=== PATIENT | female | born 1995 ===

== ENCOUNTER 2017-07-25 13:47 | Emergency (ER) | payer MEDICAID ==
[2017-07-25 13:59] VITALS: BP 109/70; PULSE 78; RESP 20; TEMP 97.9; O2SAT 100
--- NOTE | 2017-07-25 14:37 | C.PDOC ---
History Of Present Illness 21 year old female presents to the ED for evaluation of generalized itchiness. Patient is also complaining of diffuse rashes in different spots of her body that have been intermittent for two days and pain to her elbow and knees. Patient states she started taking Wellbutrin XL 3 weeks ago. Patient told her PMD about her symptoms and was advised to still continue the medication. Patient denies fever, chills, mouth/throat swelling, shortness of breath. Time Seen by Provider: 07/25/17 14:03 Chief Complaint (Nursing): Abnormal Skin Integrity History Per: Patient History/Exam Limitations: no limitations Onset/Duration Of Symptoms: Intermittent Episodes (two days ) Current Symptoms Are (Timing): Still Present Location Of Injury: Right: Elbow, Knee, Left: Elbow, Knee Quality Of Symptoms: Painful, Itching Additional History Per: Patient Past Medical History Reviewed: Historical Data, Nursing Documentation, Vital Signs Vital Signs: Last Vital Signs Temp 97.9 F 07/25/17 13:54 Pulse 78 07/25/17 13:54 Resp 20 07/25/17 13:54 BP 109/70 07/25/17 13:54 Pulse Ox 100 07/25/17 17:45 - Medical History PMH: Depression Surgical History: No Surg Hx Family History: States: Unknown Family Hx - Social History Hx Alcohol Use: No Hx Substance Use: Yes Review Of Systems Constitutional: Negative for: Fever, Chills ENT: Negative for: Mouth Swelling, Throat Swelling Respiratory: Negative for: Shortness of Breath Skin: Positive for: Rash (diffuse), Other (generalized itchiness ) Physical Exam - Physical Exam Appears: Non-toxic, No Acute Distress Skin: Warm, Dry, Other (macular erythema to right abdomen and left forearm) Head: Atraumatic, Normacephalic Eye(s): bilateral: Normal Inspection Tongue: Normal Appearing, No Swelling Lips: Normal Appearing, No Swelling Neck: Supple Chest: Symmetrical, No Deformity, No Tenderness Cardiovascular: Rhythm Regular, No Murmur Respiratory: Normal Breath Sounds, No Rales, No Rhonchi, No Wheezing Gastrointestinal/Abdominal: Soft, No Tenderness, No Guarding, No Rebound Extremity: Normal ROM, Capillary Refill (less than 2 seconds ), No Other ( swelling or tenderness to joints ) Neurological/Psych: Oriented x3, Normal Speech, Normal Cognition ED Course And Treatment O2 Sat by Pulse Oximetry: 100 (on RA) Pulse Ox Interpretation: Normal Medical Decision Making Medical Decision Making: Impression: 21 year old female with generalized itchiness and diffuse rash Plan: * Benadryl PO * Pepcid PO * Prednisone PO * reassess and disposition Progress: Benadryl PO, Pepcid PO, and Prednisone PO administered. on re-examination, patient is resting comfortable, showing no signs of respiratory distress and is stable for discharge. Patient is advised to follow up with her PMD within 1-2 days for further evaluation and/or return to the ED if symptoms persist or worsen. Disposition Counseled Patient/Family Regarding: Diagnosis, Need For Followup, Rx Given - Disposition Referrals: Sinan Lane MD [Family Provider] - Disposition: HOME/ ROUTINE Disposition Time: 14:34 Condition: GOOD Additional Instructions: Follow up with your primary medical doctor or clinic in 2-5 days for further evaluation. Return to the emergency department at any time if symptoms persist or worsen. 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 - Scribe Statement The provider has reviewed the documentation as recorded by the Scribe (eNela Brewer) All medical record entries made by the Scribe were at my direction and personally dictated by me. I have reviewed the chart and agree that the record accurately reflects my personal performance of the history, physical exam, medical decision making, and the department course for this patient. I have also personally directed, reviewed, and agree with the discharge instructions and disposition.
== END 2017-07-25 14:45 | disposition home or self-care (01) ==
LOC: C.ER 13:47
DX: L29.9 Pruritus, unspecified (principal)

== ENCOUNTER 2017-09-14 19:17 | Emergency (ER) | payer MEDICAID ==
[2017-09-14 19:53] VITALS: BP 111/73; PULSE 61; TEMP 98.3; O2SAT 100
--- NOTE | 2017-09-14 20:20 | C.PDOC ---
History Of Present Illness 21-year-old female presents to the ED complaining of left knee pain, worsening since fall yesterday. Patient notes that 1 week ago she began having left knee pain after she bumped her leg against a table. Yesterday while at work, patient fell onto the same knee. Now she reports worsening pain as well as difficulty bending the knee and ambulating. Patient applied ice to the area, did not take any pain meds at home. She denies any numbness, tingling, or extremity weakness. Time Seen by Provider: 09/14/17 20:00 Chief Complaint (Nursing): Lower Extremity Problem/Injury History Per: Patient History/Exam Limitations: no limitations Onset/Duration Of Symptoms: Days Current Symptoms Are (Timing): Still Present Past Medical History Reviewed: Historical Data, Nursing Documentation, Vital Signs Vital Signs: Last Vital Signs Temp 98.3 F 09/14/17 19:51 Pulse 61 09/14/17 19:51 Resp 20 09/14/17 21:31 BP 111/73 09/14/17 19:51 Pulse Ox 100 09/14/17 21:22 - Medical History PMH: Depression Surgical History: No Surg Hx Family History: States: Unknown Family Hx - Social History Hx Tobacco Use: No Hx Alcohol Use: No Hx Substance Use: Yes Review Of Systems Except As Marked, All Systems Reviewed And Found Negative. Musculoskeletal: Positive for: Leg Pain (left knee) Skin: Negative for: Lesions Neurological: Negative for: Weakness, Numbness, Incoordination Physical Exam - Physical Exam Appears: Well, Non-toxic, No Acute Distress Skin: Warm, Dry, No Rash Head: Atraumatic, Normacephalic Eye(s): bilateral: Normal Inspection Oral Mucosa: Moist Neck: Normal ROM Chest: Symmetrical Respiratory: No Accessory Muscle Use Extremity: Normal ROM (with pain on flexion of left knee), Tenderness (to the anterior and suprapatellar regions of left knee), No Calf Tenderness, No Deformity, Swelling (mild swelling to the left knee) Pulses: Left Dorsalis Pedis: Normal, Right Dorsalis Pedis: Normal Neurological/Psych: Oriented x3, Normal Speech, Normal Motor, Normal Sensation ED Course And Treatment O2 Sat by Pulse Oximetry: 100 (RA) Pulse Ox Interpretation: Normal - Other Rad X-Ray Knee X-Ray: Interpreted by Me, Viewed By Me Interpretation: (-) acute fracture or dislocation Medical Decision Making Medical Decision Making: Impression: Knee Pain Plan: * X-Ray Left Knee Progress, Reassess and Dispo: Counseled patient regarding negative x-ray imaging and diagnosis. short knee immobilizer applied to knee by RN. On re-examination, patient is resting comfortably in no acute distress. Patient feels comfortable going home and will be discharged. Patient given follow up instructions. Instructed to return to ER if symptoms worsen or new symptoms arise. Disposition Counseled Patient/Family Regarding: Diagnosis, Need For Followup, Rx Given - Disposition Referrals: Jaun Gifford MD [Staff Provider] - Disposition: HOME/ ROUTINE Disposition Time: 21:00 Condition: STABLE Additional Instructions: Your xray was normal, no fracture. Please apply ice to area 15 minutes three times a day. Take Motrin as needed for pain every 6 hours, with food to not upset stomach. Follow up with orthopedic if pain persists over one week. 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 - Scribe Statement The provider has reviewed the documentation as recorded by the Scribe (Gerri Snider) All medical record entries made by the Scribe were at my direction and personally dictated by me. I have reviewed the chart and agree that the record accurately reflects my personal performance of the history, physical exam, medical decision making, and the department course for this patient. I have also personally directed, reviewed, and agree with the discharge instructions and disposition.
[2017-09-14 21:32] VITALS: RESP 20
--- NOTE | 2017-09-15 09:10 | RAD ---
Date of service: 09/14/2017 PROCEDURE: Left Knee Radiographs. HISTORY: Pain. COMPARISON: None. FINDINGS: BONES: Normal. No fracture. JOINTS: Normal. No osteoarthritis. JOINT EFFUSION: None. OTHER FINDINGS: None. IMPRESSION: Normal radiographs of the left knee.
== END 2017-09-14 21:31 | disposition home or self-care (01) ==
LOC: C.ER 19:17
DX: S83.92XA Sprain of unspecified site of left knee, initial encounter (principal); W19.XXXA Unspecified fall, initial encounter; Y92.89 Other specified places as the place of occurrence of the external cause; Y99.0 Civilian activity done for income or pay